=== PATIENT | male | born 1990 | race Native Hawaiian/Other Pacific Islander ===

== ENCOUNTER 2019-01-02 17:59 | Emergency (ER) | payer OTHER ==
[~2019-01-02] VITALS: Ht 182.9 cm; Wt 90.7 kg
[2019-01-02 18:11] VITALS: BP 130/92; TEMP 98.7
== END 2019-01-02 20:10 | disposition home or self-care (01) ==
LOC: ED 17:59
DX: M54.5 Low back pain (principal); R30.0 Dysuria
CPT/HCPCS: 99281